=== PATIENT | female | born 1965 | race Caucasian/White ===

== ENCOUNTER 2016-09-22 08:05 | Outpatient (CLI) | payer OTHER ==
--- NOTE | 2016-09-22 11:56 | Mammography Report ---
BONE DEXA:09/22/16 08:05:00 CLINICAL: Postmenopausal. No comparison. TECHNIQUE: Two site bone DEXA performed on an Hologic scanner. FINDINGS: The average BMD of the lumbar spine L1-L4 is 0.983g/cm squared with a T-score of -0.6 and a Z-score of +0.4. The average BMD of the left hip is 0.841g/cm squared with a T-score of -0.8 and a Z-score of -0.2. The femoral neck BMD is 0.680g/cm squared with a T score of -1.5 and a Z score of -0.6. IMPRESSION: 1. WHO classification: Normal with average fracture risk based on lumbar spine measurements. 2. WHO classification: Osteopenia with increased fracture risk based on left femoral neck measurements. RECOMMENDATION: Clinical correlation and routine screening. DEFINITIONS: BMD = Bone Mineral Density T-score = BMD related to mean peak bone mass of young adult (mean expressed in Standard Deviation) Z-score = Age matched BMD expressed in SD World Health Organization (WHO) Diagnostic Criteria Normal T-score > -1 SD Osteopenia T-score between -1 and -2.4 SD Osteoporosis T-score -2.5 SD or below NOTE: BMD is not the only risk factor for fracture. One should also consider factors such as the patient's age, risk of falling, previous osteoporotic fracture, family history of osteoporotic fractures, current smoker, and low body weight. Z-scores are not calculated if >80 years of age.
== END 2016-09-22 08:06 | disposition home or self-care (01) ==
LOC: SPVWC 08:05
PROVIDERS: ATTEND Internal Medicine
DX: M85.88 Other specified disorders of bone density and structure, other site (principal); F17.200 Nicotine dependence, unspecified, uncomplicated; R63.4 Abnormal weight loss; Z78.0 Asymptomatic menopausal state
CPT/HCPCS: 77080

== ENCOUNTER 2016-12-24 15:39 | Outpatient (CLI) | payer OTHER ==
--- NOTE | 2016-12-24 16:32 | Mammography Report ---
BILATERAL MAMMOGRAM: FINDINGS: The breast tissue is heterogeneously dense, which could obscure detection of small masses (approximately 50%-75% glandular). No mass, distortion, suspicious calcification, or skin change is seen. There is no significant change when compared to prior exams dating back to 2015. CAD was utilized. IMPRESSION: Negative mammogram. There is no mammographic evidence of malignancy. RECOMMENDATION: Follow-up per ACS guidelines. BI-RADS CATEGORY: 1 = Negative ACR BI-RADS MAMMOGRAPHIC CODES: 0 = Needs additional imaging evaluation; 1 = Negative; 2 = Benign; 3 = Probably benign; 4 = Suspicious; 5 = Malignant; 6 = Known biopsy-proven malignancy COMMENT: 1. Dense breast tissue, i.e., adenosis, fibrocystic changes, etc., may obscure an underlying neoplasm. 2. Approximately 10% of cancers are not detected with mammography. 3. A negative mammography report should not delay biopsy if a clinically suspicious mass is present. COMMENT: Patient follow-up letters are generated in [employer].
== END 2016-12-24 15:40 | disposition home or self-care (01) ==
LOC: SPVWC 15:39
PROVIDERS: ATTEND Internal Medicine
DX: Z12.31 Encounter for screening mammogram for malignant neoplasm of breast (principal)
CPT/HCPCS: 77067; G0202

== ENCOUNTER 2016-12-28 11:00 | Outpatient (CLI) | payer OTHER | END 2016-12-28 11:01 | disposition home or self-care (01) | LOC: SLR 11:00 | PROVIDERS: ATTEND Internal Medicine | DX: G47.33 Obstructive sleep apnea (adult) (pediatric) (principal); R40.0 Somnolence | CPT/HCPCS: 95810 ==

== ENCOUNTER 2016-12-29 11:00 | Outpatient (CLI) | payer OTHER | END 2016-12-29 11:01 | disposition home or self-care (01) | LOC: SLR 11:00 | PROVIDERS: ATTEND Internal Medicine | DX: G47.33 Obstructive sleep apnea (adult) (pediatric) (principal); R40.0 Somnolence | CPT/HCPCS: 95811 ==

== ENCOUNTER 2018-12-01 10:41 | Outpatient (CLI) | payer OTHER ==
--- NOTE | 2018-12-01 12:59 | Mammography Report ---
Bone densitometry. History: Postmenopausal and history of osteoporosis. Procedure: Patient scanned with on an Hologic DEXA scanner. Examination was performed of the lumbar spine and left. Comparison: 09/22/2016. Findings: The BMD of the lumbar spine is 1.030 gm/cm2 with a T-score of -0.2 and a Z score of +1.0. . Percent change from previous exam is +4.8. The bone mineral density (BMD) of the left femoral neck is 0.730 gm/cm2 with a T-score of -1.1 and a Z score of 0. The BMD of the total left hip is 0.871 gm/cm2 with a T-score of -0.6 and a Z score of + 0.1. Percent change from the previous exam is +3.5. Impression: 1. WHO classification: Normal based on lumbar spine measurements and a moderate improvement in spine BMD compared to the last exam. 2. WHO classification osteopenia with increased fracture risk based on left hip measurements and mode rate improvement in left hip BMD compared to the last exam. Signer Name: Dominic Lieberman MD Signed: 12/01/2018 12:54 PM Workstation Name: [id number]
== END 2018-12-01 10:42 | disposition home or self-care (01) ==
LOC: SPVWC 10:41
PROVIDERS: ATTEND Internal Medicine
DX: M85.88 Other specified disorders of bone density and structure, other site (principal); Z78.0 Asymptomatic menopausal state
CPT/HCPCS: 77080

== ENCOUNTER 2019-01-17 14:50 | Outpatient (CLI) | payer OTHER ==
--- NOTE | 2019-01-18 14:26 | Mammography Report ---
DIGITAL SCREENING MAMMOGRAM WITH CAD, 01/17/2019 INDICATION: Routine screening mammography. TECHNIQUE: Digital bilateral 2D mammography was obtained in the craniocaudal and mediolateral obliq ue projections. This examination was interpreted with the benefit of Computer-Aided Detection analysi s. COMPARISON: 01/14/2018 FINDINGS: Breast Density: The breasts are heterogeneously dense, which may obscure small masses. There is no evidence of dominant mass, suspicious calcifications or architectural distortion in eithe r breast. IMPRESSION: No mammographic evidence of malignancy. Follow up recommendation: Routine yearly BI-RADS Category 1: Negative. A "normal" or negative report should not discourage follow up or biopsy of a clinically significant f inding. A written summary of these findings will be mailed to the patient. The patient will be entered into a mammography reporting system which will generate a reminder letter for the patient's next appointmen t at the appropriate interval. The [employer] recommends yearly mammograms starting at age 40 and continuing as l xander as a woman is in good health. Breast MRI is recommended for women with an approximate 20-25% or greater lifetime risk of breast cancer, including women with a strong family history of breast or ova cristal cancer or who have been treated for Hodgkin's disease. Signer Name: Dominic Lieberman MD Signed: 01/18/2019 2:21 PM Workstation Name: [id number]
== END 2019-01-17 14:51 | disposition home or self-care (01) ==
LOC: SPVWC 14:50
PROVIDERS: ATTEND Internal Medicine
DX: Z12.31 Encounter for screening mammogram for malignant neoplasm of breast (principal)
CPT/HCPCS: 77067

== ENCOUNTER 2020-12-27 14:31 | Outpatient (CLI) | payer OTHER ==
--- NOTE | 2020-12-27 16:17 | Mammography Report ---
DEXA BONE DENSITY SCAN INDICATION / CLINICAL INFORMATION: OSTEOPENIA, UNSPECIFIED LOCATION M85.80. 55 years Female COMPARISON: 12/01/2018 LUMBAR SPINE, L1-L4: - Bone mineral density (BMD) = 1.038 g/cm2. - T-score = -0.1 - Z-score = 1.2 Change (%) since most recent prior (if available): +0.8 LEFT HIP, NECK : - Bone mineral density (BMD) = 0.75 g/cm2. - T-score = -1.3 - Z-score = -0.1 Change (%) since most recent prior (if available): -3.5 IMPRESSION: 1. WHO Classification: Osteopenia. Fracture Risk: Increased. 2. 10-Year Fracture Risk (FRAX) = Major Osteoporotic Not reported.% / Hip: Not reported.% FRAX generally not reported for patients with normal or osteoporotic BMD, in zkc-[id number]-hlkvndu lea ents younger than age 50, or in patients undergoing pharmacotherapy BMD Reporting Guidelines (ISCD, 2015) BMD Reporting in Postmenopausal Women and in Men Age 50 and Older - T-scores are preferred. - The WHO densitometric classification is applicable. BMD Reporting in Females Prior to Menopause and in Males Younger Than Age 50 - Z-scores, not T-scores, are preferred. This is particularly important in children. - A Z-score of -2.0 or lower is defined as below the expected range for age, and a Z-score above -2.0 is within the expected range for age. - Osteoporosis cannot be diagnosed in men under age 50 on the basis of BMD alone. - The WHO diagnostic criteria may be applied to women in the menopausal transition. http://www.iscd.org/official-positions/4201-gkle-bgernxfs-positions-adult/ Signer Name: Aron Willis DO Signed: 12/27/2020 4:13 PM Workstation Name: [id number]
== END 2020-12-27 14:32 | disposition home or self-care (01) ==
LOC: SPVWC 14:31
PROVIDERS: ATTEND Internal Medicine
DX: M85.80 Other specified disorders of bone density and structure, unspecified site (principal); M85.89 Other specified disorders of bone density and structure, multiple sites
CPT/HCPCS: 77080

== ENCOUNTER 2021-01-31 14:22 | Outpatient (CLI) | payer OTHER | END 2021-01-31 14:23 | disposition home or self-care (01) | LOC: SPVWC 14:22 | PROVIDERS: ATTEND Internal Medicine | DX: Z12.31 Encounter for screening mammogram for malignant neoplasm of breast (principal) | CPT/HCPCS: 77067 ==

== ENCOUNTER 2022-02-03 14:04 | Outpatient (CLI) | payer OTHER ==
--- NOTE | 2022-02-05 16:32 | Mammography Report ---
DIGITAL SCREENING MAMMOGRAM WITH CAD, 02/03/2022 CLINICAL INFORMATION / INDICATION: Routine screening mammography. TECHNIQUE: Digital bilateral 2D mammography was obtained in the craniocaudal and mediolateral oblique projections. This examination was interpreted with the benefit of Computer-Aided Detection analysis. COMPARISON: 10/25/2014 through 01/31/2021. FINDINGS: Breast Density: The breasts are heterogeneously dense, which may obscure small masses. No dominant mass, suspicious calcifications, or architectural distortion in either breast. IMPRESSION: No mammographic evidence of malignancy. Follow up recommendation: Routine yearly screening mammogram. BI-RADS Category 1: NEGATIVE A "normal" or negative report should not discourage follow up or biopsy of a clinically significant f inding. A written summary of these findings will be mailed to the patient. The patient will be entered into a mammography reporting system which will generate a reminder letter for the patient's next appointmen t at the appropriate interval. The [employer] recommends yearly mammograms starting at age 40 and continuing as l xander as a woman is in good health. Breast MRI is recommended for women with an approximate 20-25% or greater lifetime risk of breast cancer, including women with a strong family history of breast or ova cristal cancer or who have been treated for Hodgkin's disease. Signer Name: Orlando Dowell MD Signed: 02/05/2022 4:27 PM Workstation Name: [id number]
== END 2022-02-03 14:05 | disposition home or self-care (01) ==
LOC: SPVWC 14:04
PROVIDERS: ATTEND Internal Medicine
DX: Z12.31 Encounter for screening mammogram for malignant neoplasm of breast (principal)
CPT/HCPCS: 77067